=== PATIENT | male | born 1960 | race Caucasian/White ===

== ENCOUNTER 2018-04-20 05:00 | Day surgery (SDC) | payer OTHER ==
[2018-04-18 13:58] VITALS: BMI 31.9
--- NOTE | 2018-04-20 09:48 | HP ---
History & Physical Update - History History: No Change - Physical Physical: No Change - Assessment Assessment: No Change - Plan Plan: No Change (Incarcerated umbilical/ventral hernia repair with mesh. Procedure was explained to the patient with risks, benefits and complications, including, infection , chronic pain, recurrence, etc. Consent obtained.)
[2018-04-20] MEDS ORDERED: LIDOCAINE HCL 1%, 10 MG/ML (20ML VIAL) ONE (09:51)
[2018-04-20] MEDS ORDERED: BUPIVACAINE HCL/PF 0.5% (5MG/ML) 10 ML VIAL ONE (09:51)
[2018-04-20] MEDS ORDERED: DESFLURANE GAS 240 ML BOTTLE IH ONE (09:52)
[2018-04-20] MEDS ORDERED: MIDAZOLAM HCL 2 MG/2 ML SINGLE DOSE VIAL ONE ×2 (10:14)
[2018-04-20] MEDS ORDERED: ROCURONIUM BROMIDE 50 MG/5 ML VIAL ONE (10:16)
[2018-04-20] MEDS ORDERED: PROPOFOL 20 ML ONE (10:17)
[2018-04-20] MEDS ORDERED: ceFAZolin SODIUM 1 GM VIAL IVPB ONE (10:20)
[2018-04-20] MEDS ORDERED: BUPIVACAINE HCL/PF (5 MG/ML) 30 ML VIAL IJ ONE ×2 (10:54→11:23)
[2018-04-20] MEDS ORDERED: LIDOCAINE HCL 1%, 10 MG/ML (20ML VIAL) INF ONE (11:23)
[2018-04-20] MEDS ORDERED: ceFAZolin SODIUM 1 GM VIAL ONE (11:38)
[2018-04-20] MEDS ORDERED: DEXAMETHASONE SOD PHOSPHATE 4 MG/1 ML VIAL ONE (11:38)
[2018-04-20] MEDS ORDERED: LIDOCAINE HCL/PF 2% SDV 5ML VIAL ONE (11:38)
[2018-04-20] MEDS ORDERED: ONDANSETRON 4 MG/2 ML VIAL ONE (11:38)
[2018-04-20] MEDS ORDERED: NEOSTIGMINE METHYLSULFATE 0.5 MG/1 ML - 10 ML MDV ONE (11:38)
[2018-04-20] MEDS ORDERED: GLYCOPYRROLATE 0.2 MG/1 ML VIAL ONE (11:38)
--- NOTE | 2018-04-20 12:05 | OP ---
Operative Note - Note: Operative Date: 04/20/18 Pre-Operative Diagnosis: Incarcerated umbilical / ventral hernia. Operation: Repair of incarcerated umbilical / ventral hernia with ventrolex mesh. Findings: Large defect with incarcerated omentum and properitoneal fat , measuring about 3 cm. in diameter. Repaired with 4.3 cm diameter , ventrolex mesh. Implants: Hernia mesh , ventrolex , 4.3 cm. diameter. Post-Operative Diagnosis: Same as Pre-op Surgeon: Chelsea Spears Well Logging Operator Mud Analysis: Ayanna Greer Anesthesia: General Specimens Removed: Hernial sac and properitoneal fat. Estimated Blood Loss (mls): 5 Operative Report Dictated: Yes
--- NOTE | 2018-04-20 12:22 | SURG ---
Surgery [employer] Note [employer] Officer: Ayanna Greer PA-C (Suzy) Date of Service: 04/20/18 Diagnosis: Incarcerated umbilical/ventral hernia Procedure: Open repair of incarcerated umbilical/ventral hernia with ventrolex mesh I was present for the entirety of the operative procedure. For further detail, please refer to operative report. Visit type - Case Type Case Type: Scheduled - Emergency Emergency Visit: No - New patient This patient is new to me today: Yes Date on this admission: 04/20/18 - Critical Care Critical Care patient: No
[2018-04-20] MEDS ORDERED: oxyCODONE HCL 5 MG TABLET PO PRN (12:25)
[2018-04-20] MEDS ORDERED: ONDANSETRON 4 MG/2 ML VIAL IVPUSH PRN (12:25)
[2018-04-20] MEDS ORDERED: PROMETHAZINE HCL 25 MG/1 ML VIAL IVPUSH PRN (12:25)
[2018-04-20] MEDS ORDERED: LACTATED RINGERS SOLUTION 1,000 ML IV SCH (12:30)
--- NOTE | 2018-04-20 14:02 | OP ---
DATE OF OPERATION: 04/20/2018 PREOPERATIVE DIAGNOSES: Incarcerated ventral/umbilical hernia. POSTOPERATIVE DIAGNOSES: Incarcerated ventral/umbilical hernia. OPERATIVE PROCEDURE: Repair of incarcerated ventral/umbilical hernia with Ventralex mesh. SURGEON: Glenys Spears MD FIRE CREW WORKER: JESUS Kendall ANESTHESIA: General anesthesia. OPERATIVE DESCRIPTION: This 57-year-old obese man was found to have a mass at and above the umbilicus which he recognized after having a colonoscopy. He also has a diastasis of the rectus muscle. The hernia was painful and incarcerated. He was brought in for the repair of the hernia. Consent was obtained, and risks, benefits, and complications were discussed with the patient. He was given a g of Ancef. General anesthesia was administered. The abdomen painted and draped. A curvilinear semicircle incision was made about 2 to 3 fingers from the umbilicus. This was then deepened through the skin, subcutaneous fat, all the way to the anterior rectus sheath. Superior flap was then raised because the subcutaneous fat and the anterior rectus sheath were above the umbilicus carrying with it the umbilical skin. There was a large central defect over 3 cm containing fat and omentum. This was carefully circumferentially and moved all the way to the epigastrium towards normal abdominal wall. Once this was done, the peritoneum was from the undersurface of the abdominal wall circumferentially. The sac was opened. There was no bowel contained within the sac. This omentum which was ligated at the neck and returned to the abdominal cavity. Ligated with 0 Vicryl sutures. The sac was then suture ligated with 0 Vicryl and the excess was excised and sent to Pathology. Once the peritoneum was circumferentially, a 4.2 cm Ventralex mesh was inserted through the defect and placed behind the abdominal wall. This was sutured in 4 different quadrants with 2-0 Prolene sutures and 3-0 Prolene sutures above and below and on either side of the midline. The superior and inferior was then incorporated into the suture superiorly and inferiorly. The suture was passed through the abdominal wall. First past then [id number] the mesh and brought out through the abdominal wall from the undersurface. The mesh was then adequately placed behind the abdominal wall. Marcaine 0.4% was injected into the wound and same to the abdominal wall. The umbilical skin was then brought to the anterior abdominal wall with 4 sutures of 3-0 Vicryl. Hemostasis was satisfactory at the completion of the procedure. The defect was then adequately repaired. The wound was irrigated. The subcutaneous fat reapproximated with buried interrupted 3-0 Vicryl sutures. The dermal layer was approximated with buried interrupted 4-0 Monocryl sutures. The skin was approximated with continuous 4-0 Monocryl sutures in a continuous fashion approximating the subcutaneous tissue. Estimated blood loss less than 5 mL. Sponge count and instrument count were correct. Dermabond was applied across the skin edges. Sterile dressing was placed. Patient tolerated the procedure well, was extubated, and returned to the recovery room in satisfactory and stable condition. A binder was placed. Jasmina JOSEPH/[id number]
[2018-04-20 15:45] VITALS: TEMP 97.8
[2018-04-20 18:01] VITALS: BP 132/70; PULSE 70
--- NOTE | 2018-04-23 13:49 | PATH ---
Surgical Pathology Report Patient Name: PALMA SHANNON [facility]. Rec. #: [id number] /Age/Gender: 1960 (Age: 57) / M Account: [id number] Location: [facility] Taken: 04/20/2018 Received: 04/20/2018 Reported: 04/23/2018 Physicians: Neri Spears M.D. Specimen(s) Received UMBILICAL INCARCERATED TISSUE Clinical History Umbilical hernia incarcerated Final Diagnosis UMBILICAL INCARCERATED TISSUE, EXCISION: FIBROCONNECTIVE AND ADIPOSE TISSUE WITH FOCAL FIBROSIS. Electronically Signed Brenda Quintana M.D. Gross Description Received in formalin labeled "incarcerated tissue umbilical," is a 3.4 x 3.3 x 1.0 cm aggregate of yellow, lobulated adipose tissue with attached navarro-pink fibromembranous tissue. Lung Splitter sections are submitted in one cassette. /04/20/201804/20/2018
== END 2018-04-20 17:00 | disposition home or self-care (01) ==
LOC: JASU-SURG 05:00
PROVIDERS: ATTEND Specialist
PROC: 0WUF0JZ Supplement Abdominal Wall with Synthetic Substitute, Open Approach (ICD-10-PCS; principal; 2018-04-20 10:00)
DX: K42.0 Umbilical hernia with obstruction, without gangrene (principal)
CPT/HCPCS: 88302-TC; 94760